=== PATIENT | female | born 1975 | race Caucasian/White ===

== ENCOUNTER 2016-08-11 10:25 | Emergency (ER) | payer SELFPAY ==
[2016-08-11 10:55] LABS: Hematocrit 43.8 % (37.0-47.0); Hemoglobin 14.7 gm/dL (12.5-16.0); Mean Cell Volume 86.4 fl (78-100); Mean Corpuscular Hgb Conc 33.6 g/dl (32-36); Mean Platelet Volume 10.6 fl (6.0-9.5); Neutrophil # 2.3 K/mm3 (1.3-6.0); Neutrophil % 53.5 % (42-75.0); Platelet Count 201 K/mm3 (150-450); Red Blood Count 5.07 M/mm3 (4.2-5.4); Red Cell Distribution Width 12.1 % (11.5-14.0); White Blood Count 4.3 K/mm3 (4.0-10.5)
[2016-08-11] MEDS ORDERED: SUCRALFATE 1 G/10 ML UDC PO ONE (10:58)
[2016-08-11] MEDS ORDERED: LIDOCAINE HCL 20 ML UDC PO ONE (10:58)
[2016-08-11] MEDS ORDERED: MAG HYDROX/ALUMINUM HYD/SIMETH 30 ML UDC PO ONE (10:58)
--- NOTE | 2016-08-11 11:07 | ERNOTE ---
Chest Pain/Cardiac HPI Date of Service: 08/11/16 Chief Complaint: Chest Pain Time Seen by Provider: 08/11/16 10:48 Source: patient Exam Limitations: no limitations Allergies/Adverse Reactions: Allergies iodine Allergy (Intermediate, Verified 08/11/16 10:35) Hives Home Medications: HOME MEDICATIONS Naproxen [Naprosyn] 500 mg PO BID PRN #60 tab 08/11/16 [Last Taken Unknown] Narrative: Pt. comes in with c/o mid chest substernal chest pain that started yesterday and was intermittent all day long with some sharp pain moments and other aching moments. Pt. denies any symptoms like this previously but also sates that she has had dizziness, nausea, and lightheadedness today without any recent illness or fever. Pt. denies any vomiting or diarrhea, SOB, or diaphoresis. Pt. states that she drinks 1 cup of coffee and 1 cup of tea per day and notices occasional skipped beats during the day and when she goes to bed at night. Review of Systems - Review of Systems Constitutional: Present: weakness, fatigue. Absent: recent illness, fever, chills, malaise EYE: Present: no symptoms reported ENT: Present: no symptoms reported. Absent: nose pain, nose congestion, nasal drainage, throat swelling Respiratory: Present: no symptoms reported. Absent: shortness of breath, cough , wheezing Cardiology: Present: chest pain, palpitations. Absent: syncope, edema Gastrointestinal/Abdominal: Present: no symptoms reported. Absent: nausea, vomiting, diarrhea, abdominal pain Genitourinary: Present: no symptoms reported Musculoskeletal: Present: no symptoms reported. Absent: back pain, joint pain Skin: Present: no symptoms reported Neurological: Present: dizziness/light-headedness. Absent: headache, weakness, numbness All Other Systems: All systems neg except as marked - Patient's Past Medical History Patient History - Medical: No pertinent hx Patient History - Cardiac/Respiratory: Other Patient History - Cancer: No Hx of Cancer Patient History - Surgical Procedures: Other Patient History - Other: None - Social History Living Situations: home Physical Exam - Physical Exam General Appearance: Present: wd/wn, alert, no apparent distress Eye Exam: Normal inspection: bilateral, PERRL: bilateral, EOMI: bilateral Ears, Nose, Throat: Present: normal ENT inspection, hearing grossly normal, normal pharynx Neck: Present: normal inspection, nontender. Absent: lymphadenopathy (R), lymphadenopathy (L) Respiratory: Present: no respiratory distress, normal breath sounds, no accessory muscle use, chest nontender, lungs clear Cardiovascular/Chest: Present: regular rate, rhythm, no murmur, normal peripheral pulses Gastrointestinal/Abdominal: Present: normal bowel sounds, nontender, nondistended, soft, no organomegaly Back Exam: Present: normal inspection, normal range of motion, no CVA tenderness , no vertebral tenderness Extremity Exam: Present: normal inspection, non-tender, no edema, normal range of motion Neurological Exam: Present: alert, oriented, normal mood/affect, no motor/ sensory deficits, 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 Absent: pallor, skin rash ED Progress - Date and Time Seen: Date and Time: 08/11/16 13:[address] petey Diaz and we will place holter for pt and have her follow up with him later next week - Results and Orders Patient's Lab Results:: I have reviewed the patient's lab results. - Vital Signs Patient's Vital Signs:: I have reviewed the patient's vital signs. Vital Signs: Vital Signs 08/11/16 08/11/16 10:30 10:52 Temperature 36.4 C L Pulse Rate 116 H 89 Respiratory 21 H 15 Rate Blood Pressure 146/86 128/70 O2 Sat by Pulse 100 100 Oximetry - EKG EKG: other - sinus tach EKG read: Interp. by me EKG Comments: no acute - Progress/Reassessment Chief Complaint: Chest Pain Progress:: Improved Departure - Departure Clinical Impression: Chest wall pain Arrhythmia Qualifiers: Arrhythmia type: unspecified cardiac arrhythmia Qualified Code(s): I49.9 - Cardiac arrhythmia, unspecified Disposition: Home self-care Condition: Good Instructions: Chest Wall Pain, [id number] Additional Instructions: Please follow up with Dr Petey Diaz as scheduled. Prescriptions: Naproxen [Naprosyn] 500 mg PO BID PRN #60 tab PRN Reason: Pain
[2016-08-11 11:09] LABS: ALT 15 U/L (19-67); AST 9 U/L (0-48); Albumin * 3.9 gm/dl (3.4-5.0); Alkaline Phosphatase * 54 U/L (50-170); Anion Gap 14.7 mmol/L (6.8-13.8); BUN/Creatinine Ratio 16.5 (9.0-21.6); Bilirubin, Total 0.4 mg/dL (0.0-1.1); Blood Urea Nitrogen 19 mg/dL (3-23); Ca. Corrected For Albumin 8.6 mg/dL (8.4-10.2); Calcium * 8.8 mg/dL (7.9-10.9); Chloride 105 mmol/L (97-106); Glucose * 85 mg/dL (70-110); Potassium 3.7 mmol/L (3.4-4.6); Sodium 140 mmol/L (132-142); Total Protein 7.7 gm/dL (6.2-8.2); Troponin I Less than 0.017 ng/ml (0.00-0.10)
[2016-08-11 11:16] LABS: Urine Bilirubin Negative (NEGATIVE); Urine Blood Negative /ul (NEGATIVE); Urine Ketone Negative (NEGATIVE); Urine Nitrite Negative (NEGATIVE); Urine Protein Negative (NEGATIVE); Urine Specific Gravity 1.015 SP.GR. (1.005-1.010); Urine Urobilinogen Normal (NORMAL); Urine pH 6.5 pH (5.0-7.0)
[2016-08-11 11:27] LABS: Urine Appearance Clear; Urine Bacteria TRACE; Urine Color Yellow; Urine RBC None Seen /hpf (0-5); Urine WBC None Seen /hpf (0-5)
[2016-08-11 11:29] LABS: Prothrombin Time (Patient) 10.6 Seconds (9.4-11.4)
[2016-08-11 11:30] LABS: INR 1.02 INR (0.90-1.10); Partial Thrombolplastin Time 30.1 Seconds (24-32)
[2016-08-11] MEDS ORDERED: NORMAL SALINE 1,000 ML IV ONE (12:16)
[2016-08-11] MEDS ORDERED: KETOROLAC TROMETHAMINE 30 MG/ML VIAL IV ONE (12:36)
[2016-08-11] MEDS ORDERED: KETOROLAC TROMETHAMINE 30 MG/ML VIAL ONE ×2 (12:45→13:27)
[2016-08-11 13:33] VITALS: BP 101/60
[2016-08-11 14:04] LABS: T4 Free * 1.11 ng/dL (0.76-1.46); TSH * 1.497 uIU/mL (0.358-3.74)
== END 2016-08-11 15:17 | disposition home or self-care (01) ==
LOC: ER 10:25
DX: R07.89 Other chest pain (principal); I49.9 Cardiac arrhythmia, unspecified